=== PATIENT | male | born 1990 | race African-American/Black ===

== ENCOUNTER 2019-10-30 10:48 | Emergency (ER) | payer SELFPAY ==
--- NOTE | 2019-10-30 11:38 | EDM.PDOCBH ---
ED HPI GENERAL MEDICAL PROBLEM - General Chief Complaint: Drug or Alcohol Abuse Stated Complaint: DETOX Time Seen by Provider: 10/30/19 11:01 Source of Information: Reports: Patient, Police History Limitations: Reports: Intoxication - History of Present Illness INITIAL COMMENTS - FREE TEXT/NARRATIVE: The patient presents by [employer] for medical clearance for residential. They found him intoxicated. He fell in the parking lot. He did not hit his head. He came back to the ER room and he fell again but he did not hit his head. He has an abrasion to his lower lip. He has no pain anywhere. He does admit to drinking last night until this morning. Onset: Gradual Duration: Day(s): Improves with: Reports: None Worsens with: Reports: None Associated Symptoms: Reports: No Other Symptoms - Related Data Allergies Allergy/AdvReac Type Severity Reaction Status Date / Time No Known Allergies Allergy Verified 10/30/19 11:02 Home Meds: Home Meds . [No Known Home Meds] 10/30/19 [History] Social & Family History - Tobacco Use Smoking Status *Q: Never Smoker ED ROS GENERAL - Review of Systems Review Of Systems: See Below Constitutional: Reports: No Symptoms HEENT: Reports: Other (abrasion to the lower lip) Respiratory: Reports: No Symptoms Cardiovascular: Reports: No Symptoms Endocrine: Reports: No Symptoms GI/Abdominal: Reports: No Symptoms : Reports: No Symptoms ED EXAM, BEHAVIORAL HEALTH - Physical Exam Exam: See Below Exam Limited By: No Limitations General Appearance: Alert, No Apparent Distress Ears: Normal External Exam Nose: Normal Inspection Throat/Mouth: Other (abrasion to the lower inner lip) Head: Atraumatic, Normocephalic Neck: Normal Inspection, Supple, Non-Tender Respiratory/Chest: No Respiratory Distress, Lungs Clear, Normal Breath Sounds Cardiovascular: Regular Rate, Rhythm, No Edema, No Murmur GI/Abdominal: Soft, Non-Tender, No Organomegaly, No Mass Back Exam: Normal Inspection Extremities: Normal Inspection COURSE, BEHAVIORAL HEALTH COMP - Course Vital Signs: Last Vital Signs Temp 97.8 F 10/30/19 10:59 Pulse 62 10/30/19 10:59 Resp 16 10/30/19 10:59 BP 147/91 H 10/30/19 10:59 Pulse Ox 100 10/30/19 10:59 Orders, Labs, Meds: Active Orders 24 hr Category Date Time Status Cardiac Monitoring [RC] . DIRECTED Care 10/30/19 11:01 Active CBC WITH AUTO DIFF [HEME] Stat Lab 10/30/19 11:01 Ordered COMPREHENSIVE METABOLIC PN,CMP [CHEM] Stat Lab 10/30/19 11:01 Ordered DRUG SCREEN, URINE [URCHEM] Stat Lab 10/30/19 11:01 Ordered ETHANOL BLOOD MEDICAL [CHEM] Stat Lab 10/30/19 11:01 Ordered LIPASE [CHEM] Stat Lab 10/30/19 11:01 Ordered Re-Assessment/Re-Exam: The patient refused to get his blood drawn. I will discharge him home. Departure - Departure Time of Disposition: 11:40 Disposition: Home, Self-Care 01 Condition: Good Clinical Impression: Alcohol abuse Alcohol intoxication Qualifiers: Complication of substance-induced condition: uncomplicated Qualified Code(s): F10.920 - Alcohol use, unspecified with intoxication, uncomplicated - Discharge Information *PRESCRIPTION DRUG MONITORING PROGRAM REVIEWED*: Not Applicable *COPY OF PRESCRIPTION DRUG MONITORING REPORT IN PATIENT GINA: Not Applicable Referrals: PCP,None [Primary Care Provider] - Additional Instructions: A medical screening exam was done and you are medically cleared to go to the [facility]. Please return if you are worse. Sepsis Event Note - Evaluation Sepsis Screening Result: No Definite Risk - Focused Exam Vital Signs: Vital Signs Temp Pulse Resp BP Pulse Ox 10/30/19 10:59 97.8 F 62 16 147/91 H 100 Date Exam was Performed: 10/30/19 Time Exam was Performed: 11:32 - My Orders Last 24 Hours: My Active Orders 10/30/19 11:01 Cardiac Monitoring [RC] . DIRECTED CBC WITH AUTO DIFF [HEME] Stat COMPREHENSIVE METABOLIC PN,CMP [CHEM] Stat DRUG SCREEN, URINE [URCHEM] Stat ETHANOL BLOOD MEDICAL [CHEM] Stat LIPASE [CHEM] Stat - Assessment/Plan Last 24 Hours: My Active Orders 10/30/19 11:01 Cardiac Monitoring [RC] . DIRECTED CBC WITH AUTO DIFF [HEME] Stat COMPREHENSIVE METABOLIC PN,CMP [CHEM] Stat DRUG SCREEN, URINE [URCHEM] Stat ETHANOL BLOOD MEDICAL [CHEM] Stat LIPASE [CHEM] Stat
== END 2019-10-30 11:45 | disposition home or self-care (01) ==
LOC: JD.ED 10:48
DX: F10.920 Alcohol use, unspecified with intoxication, uncomplicated (principal)
CPT/HCPCS: 99283

== ENCOUNTER 2025-04-25 14:45 | Emergency (ER) | payer SELFPAY | END 2025-04-25 15:33 | disposition left against medical advice (07) | LOC: JD.ED 14:45 | DX: M79.642 Pain in left hand (principal); R07.89 Other chest pain; Y04.8XXA Assault by other bodily force, initial encounter; Y93.89 Activity, other specified | CPT/HCPCS: 70450; 70450-26; 71100-26-RT; 71100-RT; 72125; 72125-26; 73110-26-LT; 73110-LT; 73130-26-LT; 73130-LT; 99284 ==